=== PATIENT | male | born 1960 | race African-American/Black ===

== ENCOUNTER 2025-10-25 09:18 | Emergency (ER) | payer MEDICARE ==
[2025-10-25] MEDS ORDERED: Ketorolac Tromethamine 30 MG (1 mL) VIAL ONE (10:56)
== END 2025-10-25 12:10 | disposition home or self-care (01) ==
LOC: CSHERS 09:18
DX: S16.1XXA Strain of muscle, fascia and tendon at neck level, initial encounter (principal); S29.012A Strain of muscle and tendon of back wall of thorax, initial encounter; M25.461 Effusion, right knee; I10 Essential (primary) hypertension; F17.210 Nicotine dependence, cigarettes, uncomplicated; V89.2XXA Person injured in unspecified motor-vehicle accident, traffic, initial encounter; Y92.410 Unspecified street and highway as the place of occurrence of the external cause
CPT/HCPCS: 70450; 72072; 72125; 73564; J1885; 96372